=== PATIENT | female | born 1990 | race Caucasian/White ===

== ENCOUNTER 2019-09-18 10:16 | Day surgery (SDC) | payer OTHER, BC ==
[~2019-09-18] VITALS: Ht 167.6 cm; Wt 88.8 kg
== END 2019-09-18 13:01 | disposition home or self-care (01) ==
LOC: ORSCSDS 10:16
PROVIDERS: Internal Medicine Gastroenterology
PROC: 0DB98ZX Excision of Duodenum, Via Natural or Artificial Opening Endoscopic, Diagnostic (ICD-10-PCS; principal; 2019-09-18 11:30)
PROC: 0DB68ZX Excision of Stomach, Via Natural or Artificial Opening Endoscopic, Diagnostic (ICD-10-PCS; principal; 2019-09-18 11:30)
PROC: 0DBE8ZX Excision of Large Intestine, Via Natural or Artificial Opening Endoscopic, Diagnostic (ICD-10-PCS; principal; 2019-09-18 11:30)
DX: R19.7 Diarrhea, unspecified (principal); R10.9 Unspecified abdominal pain; K62.5 Hemorrhage of anus and rectum; K64.8 Other hemorrhoids; K29.70 Gastritis, unspecified, without bleeding
CPT/HCPCS: 88305; 88342; J2250; J2704; J7120

== ENCOUNTER → 2019-12-03 | Outpatient (CLI) | payer OTHER, BC | END | disposition home or self-care (01) | LOC: LAB SHORT 12:08 → LAB 12:08 | PROVIDERS: Family Medicine | DX: Z01.419 Encounter for gynecological examination (general) (routine) without abnormal findings (principal) | CPT/HCPCS: G0145 ==

== ENCOUNTER → 2020-03-31 | Outpatient (CLI) | payer OTHER, BC ==
[2020-04-02 02:07] LABS: CHLAMYDIA TRACHOMATIS, NAA Negative (Negative)
== END | disposition home or self-care (01) ==
LOC: LAB 15:21 → LAB SHORT 15:21
PROVIDERS: Advanced Practice Midwife
DX: Z11.3 Encounter for screening for infections with a predominantly sexual mode of transmission (principal)
CPT/HCPCS: 87491; 87591

== ENCOUNTER 2020-10-01 21:39 | Inpatient (IN) | payer OTHER, BC ==
[~2020-10-01] VITALS: Ht 167.6 cm; Wt 95.0 kg
[2020-10-02] MEDS ORDERED: OMEP20ER PO (00:24)
[2020-10-02] MEDS ORDERED: PRENATAL TABLE1 EAC2 PO (00:25)
--- NOTE | 2020-10-02 00:27 | NUR ---
PT REPORTS SUICIDE IDEATIN AND SUICIDE ATTEMPT APPROX 5 YEARS AGO, NO CURRENT SUICIDAL IDEATION.
[2020-10-02 00:34] LABS: BASOPHILS ABSOLUTE AUTO 0.03 K/mm3 (0.00-0.23); BASOPHILS PERCENT AUTO 1 % (0-2); EOSINOPHILS ABSOLUTE AUTO 0.09 K/mm3 (0.00-0.68); EOSINOPHILS PERCENT AUTO 1 % (0-6); Hematocrit 33.9 % (33.0-51.0); Hemoglobin 11.3 g/dL (11.5-16.0); IMMATURE GRAN ABSOLUTE AUTO 0.04 K/mm3 (0.00-0.10); IMMATURE GRAN PERCENT AUTO 1 % (0-1); LYMPHOCYTES ABSOLUTE AUTO 1.82 K/mm3 (0.84-5.20); LYMPHOCYTES PERCENT AUTO 29 % (21-46); MONOCYTES PERCENT AUTO 8 % (4-13); Mean Corpuscular HGB 28.8 pg (26.0-34.0); Mean Corpuscular HGB Conc 33.3 g/dL (31.5-36.5); Mean Corpuscular Volume 86 fL (80-100); Mean Platelet Volume 11.2 fL (9.1-12.4); NEUTROPHILS ABSOLUTE AUTO 3.75 K/mm3 (1.96-9.15); NEUTROPHILS PERCENT AUTO 60 % (41-73); Platelet Count 156 K/mm3 (150-400); RDW Coefficient Variation 12.1 % (11.7-14.2); RDW Standard Deviation 38.3 fL (35.1-46.3); Red Blood Cell Count 3.93 M/mm3 (3.80-5.20); White Blood Cell Count 6.23 K/mm3 (4.00-11.30)
--- NOTE | 2020-10-03 14:15 | NUR ---
PARENTS GIVEN WRITTEN AND VERBAL DC INSTRUCTIONS. QUESTIONS ANSWERED AND VERBALIZE UNDERSTANDING. WILL F/U WITH OB PROVIDER WITHIN 2 WEEKS. WILL ALSO FOLLOW UP HERE AT [facility] SCHEDULED.
== END 2020-10-03 15:10 | disposition home or self-care (01) | DRG 807 ==
LOC: OBS 21:39 → BC 21:42 → OBS 10-02 00:03 → BC 10-02 00:05
PROVIDERS: ADMIT Obstetrics & Gynecology
PROC: 10E0XZZ Delivery of Products of Conception, External Approach (ICD-10-PCS; principal; 2020-10-02)
PROC: 10907ZC Drainage of Amniotic Fluid, Therapeutic from Products of Conception, Via Natural or Artificial Opening (ICD-10-PCS; 2020-10-02)
DX: O36.8130 Decreased fetal movements, third trimester, not applicable or unspecified (principal); Z37.0 Single live birth; O99.344 Other mental disorders complicating childbirth; F31.9 Bipolar disorder, unspecified; Z3A.38 38 weeks gestation of pregnancy; Z67.10 Type A blood, Rh positive; O32.2XX0 Maternal care for transverse and oblique lie, not applicable or unspecified
CPT/HCPCS: 59025; 85025; 86850; 86900; 86901; 87210; 99214; A9270; J1885; J2210; J2590; J7120

== ENCOUNTER → 2021-08-28 | Outpatient (CLI) | payer BC ==
[~2021-08-28] MED LIST: OMEP20ER PO; PRENATAL TABLE1 EAC2 PO
== END | disposition home or self-care (01) ==
LOC: LAB SHORT 07:58 → PLD 07:58 → LAB 07:58
DX: L81.4 Other melanin hyperpigmentation (principal)
CPT/HCPCS: 88305; 88342

== ENCOUNTER → 2021-11-10 | Outpatient (CLI) | payer BC ==
[2021-11-14 15:10] LABS: HPV 16 Negative (Negative); HPV 18 Negative (Negative); HPV OTHER HR TYPES Negative (Negative)
== END | disposition home or self-care (01) ==
LOC: LAB 14:07 → LAB SHORT 14:07
PROVIDERS: Advanced Practice Midwife
DX: Z01.419 Encounter for gynecological examination (general) (routine) without abnormal findings (principal)
CPT/HCPCS: 87624; G0123

== ENCOUNTER → 2023-08-26 | Outpatient (CLI) | payer BC ==
[2023-09-09 15:14] LABS: HPV HIGH RISK BY TMA Not Detected; HPV SOURCE Cervical
== END ==
LOC: LAB SHORT 17:26 → LAB 17:26
PROVIDERS: Advanced Practice Midwife
DX: Z12.4 Encounter for screening for malignant neoplasm of cervix (principal)
CPT/HCPCS: 87624; G0123